=== PATIENT | male | born 1965 | race Caucasian/White ===

== ENCOUNTER → 2016-09-15 | Outpatient (CLI) | payer SELFPAY ==
[~2016-09-15] MED LIST: EC-NAPROSYN500 MG PO; LAMISIL250 MG PO; LANTUS100 U/ML SQ; LYRICA; METFORMIN PO; TOPROL XL 50 MG50 MG PO; TOPROL XL PO; VICTOZA0.6 MG/0.1 SQ; VITAMIN D50000 UNIT PO; ZESTRIL2.5 MG PO
== END | disposition home or self-care (01) ==
LOC: SGUS 09-12 15:00
DX: N50.89 Other specified disorders of the male genital organs (principal); N44.2 Benign cyst of testis
CPT/HCPCS: 93975